=== PATIENT | female | born 2000 | race African-American/Black ===

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

== ENCOUNTER 2025-05-21 07:54 | Emergency (ER) | payer OTHER, SELFPAY ==
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
[2025-05-21 08:07] VITALS: BP 105/53; PULSE 68; RESP 14; TEMP 36.6; O2SAT 98; BMI 25.7
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
--- OUTSIDE RECORDS SUMMARY | 2025-05-21 08:39 | XMS_ITS | Data Portability ---
Author Organization Fabienne Cespedes Call Address [address] [place] [address] Care Team Providers Care Director Digital Analytics Name Role Phone VREONICA NGUYEN Point Of Sale Associate Unavailable Assessment No assessment recorded. Plan of Treatment Reminders Order Date Submit Date Provider Last Modified By Organization Details Last Modified Time Details Appointments None recorded. Lab lipid panel, serum 2022 023 RANDY [facility], [address] [place], [address], 3 10:06:35 CBC w/ auto diff 2022 023 RANDY [facility], [address] [place], [address], 3 10:06:33 CMP, serum or plasma 2022 023 RANDY [facility], [address] [place], [address], 3 10:06:34 Referral psychologis t referral - Reports h/o anxiety disorder. Reports recent family event that has worsened her symptoms. [facility]22 [facility] [address] [place] [address] [facility], [address] [place] [address], [address], 4 11:58:40 Procedures None recorded. Surgeries None recorded. Imaging None recorded. Medication Orders None recorded. Patient TargetsNo targets recorded. Patient InstructionsNo instructions recorded. Reason for Referral Psychologist Referral for Mi xed anxiety and depressive disorder Reports h/o anxiety disorder. Reports recent family event that has worsened her symptoms. Referring Physician: Steven Nava, Family Medicine, Encounter Date: 09/22/2023 Results Created Date Observation Date Name Description Value Unit Range Abnormal Flag Note LastModifiedBy Organization Detail LastModifiedTime 09/22/2009/23/2023 CBC WITH DIFFE RENTI AL/PL ATELE T WBC 6.5 x10e3 /uL 3.4-10 .8 Not Available [facility] ([facility]) [address] [place], [address], 09/23/2023 10:06:33 09/22/2009/23/2023 CBC WITH DIFFE RENTI AL/PL ATELE T RBC 5.54 x10e6 /uL 3.77-5 .28 above high normal Not Available [facility] ([facility]) [address] [place], [address], 09/23/2023 10:06:33 09/22/20 23 09/23/2023 CBC WITH DIFFE RENTI AL/PL ATELE T hemoglobin 12.7 g/dL 11.1-1 5.9 Not Available [facility] ([facility]) [address] [place], [address], 09/23/2023 10:06:33 09/22/20 23 09/23/2023 CBC WITH DIFFE RENTI AL/PL ATELE T hematocrit 41.1 % 34.0-4 6.6 Not Available [facility] ([facility]) [address] [place], [address], 09/23/2023 10:06:33 09/22/20 23 09/23/2023 CBC WITH DIFFE RENTI AL/PL ATELE T MCV 74 fL 79-97 below low normal Not Available [facility] ([facility]) [address] [place], [address], 09/23/2023 10:06:33 11/07/09/23/2023 CBC WITH DIFFE RENTI AL/PL ATELE T MCH 22.9 pg 26.6-3 3.0 below low normal Not Available [facility] ([facility]) [address] [facility] [place] [facility], [place], [address], 09/23/2023 10:06:33 09/22/20 23 09/23/2023 CBC WITH DIFFE RENTI AL/PL ATELE T MCHC 30.9 g/dL 31.5-3 5.7 below low normal Not Available [facility] ([facility]) [address] [facility] [place] [facility], [place], [address], 09/23/2023 10:06:33 09/22/20 23 09/23/2023 CBC WITH DIFFE RENTI AL/PL ATELE T RDW 13.7 % 11.7-1 5.4 Not Available [facility] ([facility]) [address] [facility] [place] [facility], [place], [address], 09/23/2023 10:06:33 09/22/20 23 09/23/2023 CBC WITH DIFFE RENTI AL/PL ATELE T platelets 240 x10e3 /uL 150-45 0 Not Available [facility] ([facility]) [address] [facility] [place] [facility], [place], [address], 09/23/2023 10:06:33 09/22/20 23 09/23/2023 CBC WITH DIFFE RENTI AL/PL ATELE T neutrophils 60 % not estab. Not Available [facility] ([facility]) [address] [facility] [place] [facility], [place], [address], 09/23/2023 10:06:33 09/22/20 23 09/23/2023 CBC WITH DIFFE RENTI AL/PL ATELE T lymphs 30 % not estab. Not Available [facility] ([facility]) [address] [facility] [place] [facility], [place], [address], 09/23/2023 10:06:33 09/22/20 23 09/23/2023 CBC WITH DIFFE RENTI AL/PL ATELE T monocytes 8 % not estab. Not Available [facility] ([facility]) [address] [facility] [place] [facility], [place], [address], 09/23/2023 10:06:33 09/22/20 23 09/23/2023 CBC WITH DIFFE RENTI AL/PL ATELE T eos 1 % not estab. Not Available [facility] ([facility]) [address] [facility] [place] [facility], [place], [address], 09/23/2023 10:06:33 09/22/20 23 09/23/2023 CBC WITH DIFFE RENTI AL/PL ATELE T basos 1 % not estab. Not Available [facility] ([facility]) [address] [facility] [place] [facility], [place], [address], 09/23/2023 10:06:33 09/22/20 23 09/23/2023 CBC WITH DIFFE RENTI AL/PL ATELE T immature cells SCRAPER LOADER OPERATOR Not Available [facility] ([facility]) [address] [place], [address], 09/23/2023 10:06:33 09/22/20 23 09/23/2023 CBC WITH DIFFE RENTI AL/PL ATELE T neutrophils (absolute) 3.9 x10e3 /uL 1.4-7. 0 Not Available [facility] ([facility]) [address] [facility] [place] [facility], [place], [address], 09/23/2023 10:06:33 09/22/20 23 09/23/2023 CBC WITH DIFFE RENTI AL/PL ATELE T lymphs (absolute) 2.0 x10e3 /uL 0.7-3. 1 Not Available [facility] ([facility]) [address] [place], [address], 09/23/2023 10:06:33 09/22/20 23 09/23/2023 CBC WITH DIFFE RENTI AL/PL ATELE T monocytes(ab solute) 0.5 x10e3 /uL 0.1-0. 9 Not Available [facility] ([facility]) [address] [facility] [place] [facility], [place], [address], 09/23/2023 10:06:33 09/22/20 23 09/23/2023 CBC WITH DIFFE RENTI AL/PL ATELE T eos (absolute) 0.1 x10e3 /uL 0.0-0. 4 Not Available [facility] ([facility]) [address] [facility] [place] [facility], [place], [address], 09/23/2023 10:06:33 09/22/20 23 09/23/2023 CBC WITH DIFFE RENTI AL/PL ATELE T baso (absolute) 0.0 x10e3 /uL 0.0-0. 2 Not Available [facility] ([facility]) [address] [facility] [place] [facility], [place], [address], 09/23/2023 10:06:33 09/22/20 23 09/23/2023 CBC WITH DIFFE RENTI AL/PL ATELE T immature granulocytes 0 % not estab. Not Available [facility] ([facility]) [address] [facility] [place] [facility], [place], [address], 09/23/2023 10:06:33 09/22/20 23 09/23/2023 CBC WITH DIFFE RENTI AL/PL ATELE T immature grans (abs) 0.0 x10e3 /uL 0.0-0. 1 Not Available [facility] ([facility]) [address] [facility] [place] [facility], [place], [address], 09/23/2023 10:06:33 09/22/20 23 09/23/2023 CBC WITH DIFFE RENTI AL/PL ATELE T NRBC SCRAPER LOADER OPERATOR Not Available [facility] ([facility]) [address] [facility] [place] [facility], [place], [address], 09/23/2023 10:06:33 09/22/20 23 09/23/2023 CBC WITH DIFFE RENTI AL/PL ATELE T hematology comments: SCRAPER LOADER OPERATOR Not Available [facility] ([facility]) [address] [facility] [place] [facility], [place], [address], 09/23/2023 10:06:33 09/22/20 23 09/23/2023 COMP. METAB OLIC PANEL (14) glucose 87 mg/dL 70-99 Not Available [facility] ([facility]) [address] [facility] [place] [facility] [place], [address], 09/23/2023 10:06:34 09/22/20 23 09/23/2023 COMP. METAB OLIC PANEL (14) BUN 15 mg/dL 6-20 Not Available [facility] ([facility]) [address] [facility] [place] [facility] [place], [address], 09/23/2023 10:06:34 09/22/20 23 09/23/2023 COMP. METAB OLIC PANEL (14) creatinine 0.81 mg/dL 0.57-1 .00 Not Available [facility] ([facility]) [address] [facility] [place] [facility], [place], [address], 09/23/2023 10:06:34 09/22/20 23 09/23/2023 COMP. METAB OLIC PANEL (14) eGFR 106 mL/mi n/1.7 3 >59 Not Available [facility] ([facility]) [address] [place], [address], 09/23/2023 10:06:34 09/22/20 23 09/23/2023 COMP. METAB OLIC PANEL (14) BUN/creatini ne ratio 19 9-23 Not Available [facility] ([facility]) [address] [facility] [place] [facility] [place], [address], 09/23/2023 10:06:34 09/22/20 23 09/23/2023 COMP. METAB OLIC PANEL (14) sodium 141 mmol/ L 134-14 4 Not Available [facility] ([facility]) [address] [place], [address], 09/23/2023 10:06:34 09/22/20 23 09/23/2023 COMP. METAB OLIC PANEL (14) potassium 4.1 mmol/ L 3.5-5. 2 Not Available [facility] ([facility]) [address] [facility] [place] [facility], [place], [address], 09/23/2023 10:06:34 09/22/20 23 09/23/2023 COMP. METAB OLIC PANEL (14) chloride 106 mmol/ L 96-106 Not Available [facility] ([facility]) [address] [facility] [place] [facility], [place], [address], 09/23/2023 10:06:34 09/22/20 23 09/23/2023 COMP. METAB OLIC PANEL (14) carbon dioxide, total 21 mmol/ L 20-29 Not Available [facility] ([facility]) [address] [facility] [place] [facility], [place], [address], 09/23/2023 10:06:34 09/22/20 23 09/23/2023 COMP. METAB OLIC PANEL (14) calcium 9.5 mg/dL 8.7-10 .2 Not Available [facility] ([facility]) [address] [facility] [place] [facility] [place], [address], 09/23/2023 10:06:34 09/22/20 23 09/23/2023 COMP. METAB OLIC PANEL (14) protein, total 7.4 g/dL 6.0-8. 5 Not Available [facility] ([facility]) [address] [facility] [place] [facility], [place], [address], 09/23/2023 10:06:34 09/22/20 23 09/23/2023 COMP. METAB OLIC PANEL (14) albumin 4.6 g/dL 4.0-5. 0 Not Available [facility] ([facility]) [address] [facility] [place] [facility], [place], [address], 09/23/2023 10:06:34 09/22/20 23 09/23/2023 COMP. METAB OLIC PANEL (14) globulin, total 2.8 g/dL 1.5-4. 5 Not Available [facility] ([facility]) [address] [facility] [place] [facility], [place], [address], 09/23/2023 10:06:34 09/22/20 23 09/23/2023 COMP. METAB OLIC PANEL (14) A/G ratio 1.6 1.2-2. 2 Not Available [facility] ([facility]) [address] [facility] [place] [facility], [place], [address], 09/23/2023 10:06:34 09/22/20 23 09/23/2023 COMP. METAB OLIC PANEL (14) bilirubin, total 0.5 mg/dL 0.0-1. 2 Not Available [facility] ([facility]) [address] [facility] [place] [facility], [place], [address], 09/23/2023 10:06:34 09/22/20 23 09/23/2023 COMP. METAB OLIC PANEL (14) alkaline phosphatase 85 IU/L 44-121 Not Available [facility]) [address] [facility] [place] [facility], [place], [address], 09/23/2023 10:06:34 09/22/20 23 09/23/2023 COMP. METAB OLIC PANEL (14) AST (SGOT) 16 IU/L 0-40 Not Available [facility] ([facility]) [address] [place], [address], 09/23/2023 10:06:34 09/22/20 23 09/23/2023 COMP. METAB OLIC PANEL (14) ALT (SGPT) 10 IU/L 0-32 Not Available [facility] ([facility]) [address] [facility] [place] [facility], [place], [address], 09/23/2023 10:06:34 09/22/20 23 09/23/2023 LIPID PANEL cholesterol, total 143 mg/dL 100-19 9 Not Available [facility] ([facility]) [address] [facility] [place] [facility], [place], [address], 09/23/2023 10:06:35 09/22/20 23 09/23/2023 LIPID PANEL triglyceride s 39 mg/dL 0-149 Not Available [facility] ([facility]) [address] [facility] [place] [facility], [place], [address], 09/23/2023 10:06:35 09/22/20 23 09/23/2023 LIPID PANEL HDL cholesterol 49 mg/dL >39 Not Available [facility]) [address] [facility] [place] [facility], [place], [address], 09/23/2023 10:06:35 09/22/20 23 09/23/2023 LIPID PANEL VLDL cholesterol katt 9 mg/dL 5-40 Not Available [facility] ([facility]) [address] [facility] [place] [facility], [place], [address], 09/23/2023 10:06:35 09/22/20 23 09/23/2023 LIPID PANEL LDL chol calc ([facility]) 85 mg/dL 0-99 Not Available [facility]) [address] [facility] [place] [facility], [place], [address], 09/23/2023 10:06:35 09/22/20 23 09/23/2023 LIPID PANEL comment: SCRAPER LOADER OPERATOR Not Available [facility] ([facility]) [address] [facility] [place] [facility], [place], [address], 09/23/2023 10:06:35 Result Notes None recorded. Problems Name Problem SNOMED Code Status Onset Date Resolution Date Notes Provider Name and Address Organization Details Recorded Time Mixed anxiety and depressive disorder 091113303 Active 2022 JW Collier [address] [place] [address], HIMANSHU MANDO, [place], [address], [facility] - [facility] 14:46:21 Gynecologic examination Active 2022 JOSE MANUEL CollierNP [address] [facility],[address], [place], [address], [facility] 3 14:51:41 Screening for cardiovascular system disease Active 2022 StevenJW Giraldo Eyal [facility],[address], [place], [address], [facility] 3 14:51:42 Problem Notes None recorded. Procedures Surgical History Date Name Laterality Status Provider Name and Address Organization Details Recorded Time Date of Last Pap Smear completed StevenJW Giraldo Eyal [facility],[place], [address], [facility] 09/22/2023 14:30:10 repair of umbilical hernia completed StevenJW Giraldo Eyal [facility], [place], [address], [facility] 09/22/2023 14:29:52 Imaging Results None recorded. Procedure Notes None recorded. Medical Equipment None Reported. Allergies No known drug allergies Medications Name Sig Start Date Stop Date Status Note LastModified by Organization Details LastModified Time acetaminophe n 325 mg tablet active Not Available Not Available Not Available fluconazole 150 mg tablet TAKE 1 TABLET BY MOUTH EVERY 3 DAYS FOR 2 DOSES active Not Available Not Available No t Available metronidazol e 0.75 % (37.5 mg/5 gram) vaginal gel Select to view Extended SIG active Not Available Not Available No t Available metronidazol e 500 mg tablet TAKE 1 TABLET BY MOUTH TWICE A DAY FOR 7 DAYS active Not Available Not Available No t Available valacyclovir 500 mg tablet TAKE 1 TABLET BY MOUTH TWICE DAILY active Not Available Not Available No t Available acetaminophe n 500 mg tablet TAKE 1 TABLET BY MOUTH EVERY 4 TO 6 HOURS NEEDED active Not Available Not Available No t Available doxycycline monohydrate 100 mg capsule TAKE 1 CAPSULE BY MOUTH TWICE A DAY FOR 10 DAYS active Not Available Not Available No t Available cephalexin 500 mg capsule active Not Available Not Available Not Available clindamycin 2 % vaginal cream INSERT 1 APPLICATORF UL VAGINALLY AT BEDTIME FOR 7 DAYS active Not Available Not Available N ot Available ibuprofen 600 mg tablet TAKE 1 TABLET BY MOUTH EVERY 6 TO 8 HOURS NEEDED active Not Available Not Available No t Available ondansetron 4 mg disintegrati ng tablet DISSOLVE ONE TABLET BY MOUTH EVERY 6 HOURS NEEDED FORNAUSEA AND VOMITING active Not Available Not Available No t Available metronidazol e 0.75 % topical gel APPLY TOPICALLY AT BEDTIME FOR 5 DAYS active Not Available Not Available N ot Available amoxicillin 875 mg-potassium clavulanate 125 mg tablet TAKE 1 TABLET BY MOUTH EVERY 12 HOURS DAILY active Not Available Not Available No t Available oxycodone 5 mg tablet TAKE 1 TABLET EVERY 6 HOURS NEEDED FOR BREAKTHROUG H PAIN. active Not Available Not Available No t Available nitrofuranto in monohydrate/ macrocrystal s 100 mg capsule TAKE 1 CAPSULE BY MOUTH EVERY 12 HOURS FOR 5 DAYS active Not Available Not Available N ot Available chlorhexidin e gluconate 0.12 % mouthwash RINSE MOUTH WITH 15ML (1 CAPFUL) FOR 30 SECONDS IN MORNING AND EVENING AFTER BRUSHING, THEN SPIT active Not Available Not Available No t Available levonorgestr el 1.5 mg tablet TAKE 1 TABLET BY MOUTH WITHIN 72HRS OF UNPROTECTED SEX. active Not Available Not Available No t Available 28 mg iron-800 mcg tablet TAKE 1 TABLET BY MOUTH DAILY active Not Available Not Available Not Available Vitals Date Recorded Oxygen saturation Oxygen saturation in Arterial blood by Pulse oximetry Heart rate Respiratory rate Body temperature Body height Body mass index (BMI) Body weight Systolic And Diastolic Provider Name and Address Organization Details Last Updated DateTime 3 98 % 98 % 54 /min 20 /min 98.9 [degF] 160.02 cm 25.7 kg/m2 73192.8 9 g 135/61 mm[Hg] JW Collier [address] [place], [address] [place] [address] 3 14:37:49 Social History Question Answer Notes LastModified by Organizat ion Details LastModified Time Tobacco Smoking Status Never Smoker JW Collier [address] [place] [address],[place], [address], [facility] 09/22/2023 14:26:59 Do You Have An Advance Directive? No Information n ot available 09/22/2023 If You Are , What Was Your Level Of Alcohol Consumption Prior To ? None Information not available 09/22/2023 Do You Wear A Helmet When Biking? Yes Information not available 09/22/2023 Are You Blind Or Do You Have Difficulty Seeing? No Information n ot available 09/22/2023 Is Blood Transfusion Acceptable In An Emergency? Yes Information not available 09/22/2023 What Is Your Level Of Caffeine Consumption? Occasional Information not available 09/22/2023 What Type Of Sorting Machine Operator Do You Use? None Information not available 09/22/2023 In The 14 Days Before Symptom Onset, Have You Had Close Contact With A Laboratory-confirm ed COVID-19 While That Case Was Ill? No Information n ot available 09/22/2023 In The 14 Days Before Symptom Onset, Have You Had Close Contact With A Person Who Is Under Investigation For COVID-19 While That Person Was Ill? No Information not available 09/22/2023 Have You Been To An Area Known To Be High Risk For COVID-19? No Information not available 09/22/2023 Are You Deaf Or Do You Have Serious Difficulty Hearing? No Information not available 09/22/2023 What Type Of Diet Are You Following? REGULAR Information n ot available 09/22/2023 Have You Processed Blood Or Body Fluids From An Ebola Virus Disease Patient Without Appropriate PPE? No Information not available 09/22/2023 Do You Reside In Or Have You Traveled To An Area Where Ebola Virus Transmission Is Active? No Information not available 09/22/2023 What Is The Highest Grade Or Level Of School You Have Completed Or The Highest Degree You Have Received? [id number] Information not available 09/22/2023 How Many Days Of Moderate To Strenuous Exercise, Like A Brisk Walk, Did You Do In The Last 7 Days? 5 Information not available 09/22/2023 On Those Days That You Engage In Moderate To Strenuous Exercise, How Many Minutes, On Average, Do You Exercise? 25 Information not available 09/22/2023 Have There Been Any Changes To Your Family Or Social Situation? No Information no t available 09/22/2023 What Is The Fluoride Status Of Your Home? Unknown Information not available 09/22/2023 Are There Any Guns Present In Your Home? No Information not available 09/22/2023 Have You Recently Or Are You Planning To Travel To An Area With Zika Virus? No Information not available 09/22/2023 Do You Use Insect Repellent Routinely? Yes Information not available 09/22/2023 How Many Children Do You Have? 1 Information not available 09/22/2023 Do You Have Any Pets? No Information not available 09/22/2023 Do You Use Protection During Sex? Usually Information not available 09/22/2023 What Is Your Relationship Status? Single Information not available 09/22/2023 Do You Use Your Seat Belt Or Car Seat Routinely? Yes Information not available 09/22/2023 Are You Sexually Active? Yes Information not available 09/22/2023 Do You Have Smoke And Carbon Monoxide Detectors In Your Home? Yes Information not available 09/22/2023 Are You Passively Exposed To Smoke? No Information no t available 09/22/2023 What Types Of Sporting Activities Do You Participate In? None Information not available 09/22/2023 Do You Use Sunscreen Routinely? Yes Information not available 09/22/2023 Do You Have Difficulty Walking Or Climbing Stairs? No Information not available 09/22/2023 Sex: Female Functional Status Question Answer Note LastModified by Organizat ion Details LastModified Time Do you use any illicit or recreational drugs? No Information not available 09/22/2023 Do you or have you ever used any other forms of tobacco or nicotine? No Information not available 09/22/2023 What is your level of alcohol consumption? Occasional Information not available 09/22/2023 Are you currently employed? No Information not available 09/22/2023 Do you have transportation difficulties? No Information not available 09/22/2023 Are you able to walk? YESWOREST Information not available 09/22/2023 Do you have difficulty doing errands alone? No Information not available 09/22/2023 Are you able to care for yourself? Yes Information n ot available 09/22/2023 Do you have difficulty dressing or bathing? No Information not available 09/22/2023 What is your exercise level? Occasional Information not available 09/22/2023 Mental Status Question Answer Note LastModified by Organizat ion Details LastModified Time Do you feel stressed (tense, restless, nervous, or anxious, or unable to sleep at night)? [id number] Information not available 09/22/2023 Do you have difficulty concentrating, remembering or making decisions? No Information no t available 09/22/2023 Family History Relationship Description Onset Age of this Age Resolved Age Notes LastModified by Organization Details LastModified Time Sister Diabetes mellitus Not available 2022 14:25:23 Mother Malignant neoplastic disease Not available 2022 14:25:33 Father Coronary arterioscler osis Not available 2022 14:25:41 Medical History Condition Response Coronary Artery Disease N Other N Gout N Kidney Stones N Blood Diseases N Hyperthyroidism N Blood Transfusion N COPD N Depression N Anxiety Disorder N Muscle, Joint, or Bone Problems N Obesity N Vision or Eye Problems N Arthritis N Infertility N Polyps N Mental Disorder N Cancer N Stroke N Varicosities N Fibromyalgia N Headaches N Kidney Disease N Heart Problems N Ear or Hearing Problems N Hospitalizations N Skin Problems N Eating Disorder N MRSA exposure N Constipation N Tuberculosis N AIDS/HIV N Asthma N Hepatitis N Pulmonary Embolism N Chronic Ear Infections N Chicken Pox N Autism Spectrum Disorder (ASD) N Thrombophilias N Breast Cancer N Hypothyroidism N Lung Disease N Defects or Inherited Disease N Developmental or Behavioral Disorders N Breast Problem N Difficulty Swallowing N Anesthesia Complications N Meniere's disease N Endometriosis N Bladder or Kidney Problems N High Cholesterol N Liver Disease N Allergies/Hayfever N Thyroid Problems N GI Problems N ADD/ADHD N Anemia N Mental Illness N Ovarian Cancer N Diabetes N Bedwetting N Seizures/Epilepsy N Congestive Heart Failure (CHF) N Eczema N Diverticulitis N Abuse/Domestic Violence N Reflux/GERD N Heart Disease N Pre-Eclampsia N Hypertension N Osteoporosis N Gynecological History Statement/Question Response STIs/STDs N HPV Vaccine Y Date of Last Pap Smear 06/22/2023 Sexual Problems? N Sexually Active? Y Obstetrics History GPAL:G 1 P 0 0 0 0 Past Encounters Encounter ID Performer Location Encounter Start Date Encounter Closed Date Diagnosis/Indication Diagnosis SNOMED-CT Code Diagnosis ICD10 Code Diagnosis Note [id number] [address]W [address], [address] [place] [address] 09/22/2023 14:14:44 09/22/2023 15:01:35 Active or passive immunization 007966790 Z23 Reports up to date with some vaccines Adult heal th examination 219076493 Z00.00 Seems stable. Patient presented to office today for annual preventati ve exam. Education was provided on healthy nutrition, including a diet rich in fruits and vegetables , minimizing simple carbohydra sakina, salt, and saturated fats. Encouraged regular cardiovasc ular exercise such as walking at least 30 minutes daily, 5 times per week. Emphasized preventive health measures and educated pt on fall prevention and community- based lifestyle interventi ons to help reduce health risks and promote healthy living. CBC with diff and CMP drawn. Results pending Gynecologi c examination [id number] Z01.419 Seems stable. Patient reports annual pap smear within normal limits. F/u with PSYCHOLOGIST CHIEF as prescribed . Screening for cardiovascular system disease [id number] Z13.6 Seems stable. Patient with no known hyperlipid emia. Last lipid panel unknown. Patient continues on lifestyle modificati ons discussed including weight loss, aerobic exercise at least 30 min/day at least 5 days per week, and a diet rich in fruit and vegetables . Lipid panel drawn. Results pending. Mixed anxi ety and depressive disorder [id number] F41.8 Seems stable. Reports recent family event that has worsened her symptoms. Patient identified triggers for anxiety and impact of anxious thinking on functionin g. Discussed strategies to regulate symptoms and need for compliance with treatment. Denies panic attack. F/u with psych as discussed. Health Concerns Section Related Observation LastModified by Organization Detai ls LastModified Time None Recorded Concern Status LastModified by Organization Details LastModified Time None Recorded Advance Directives Directive N: Payers Insurance Date Sequence Insurance Name Policy Number Policy Delgado Covered Member ID Delgado Member ID Guarantor Name 10/19/2024 [employer] Mariluz Kirby 09/17/2023 SLIDING FEE SCHEDULE - DISCOUNT Mariluz Kirby 10/19/2024 1 [place] [facility] Mariluz Kirby [id number] Mariluz Kirby 09/22/2023 *SELF PAY* laly Kirby Notes Date Note Type Note Provider Name and Address Organization Details Recorded Time 09/22/2023 text/html Patient seen for annual preventative exam JW Collier [address] [place] [address],[address], [place], [address], [facility] 09/22/2023 14:53:14 OBGyn Episode No OBEpisode recorded.
[2025-05-21 08:51] LABS: MANUAL DIFF FLAG NO
[2025-05-21 08:53] LABS: Hematocrit 40.5 % (37.0-47.0); Hemoglobin 13.2 g/dl (12.0-16.0); Imm Gran Abs Auto 0.04 X10*3/uL (0.00-0.03); Imm Gran Pct Auto 0.4 % (0.0-0.4); Lymphocytes Absolute Auto 1.6 X10*3/uL (1.2-4.9); Mean Corpuscular HGB Conc 32.6 g/dl (31.0-35.0); Mean Corpuscular Hemoglobin 22.9 pg (27.0-33.0); Mean Corpuscular Volume 70.2 fL (80.0-98.0); NRBC Abs Auto 0.000 X10*3/uL (0.0-0.012); NRBC Pct Auto 0.0 /100WBC (0.0-0.2); Platelet Count 234 X10*3/uL (160-400); Red Blood Count 5.77 X10*6/uL (4.20-5.50); White Blood Count 9.2 X10*3/uL (4.8-10.8)
[2025-05-21 09:19] LABS: Alanine Aminotransferase 13 U/L (0-31); Albumin Level 4.8 g/dL (3.5-5.0); Alkaline Phosphatase 80 U/L (39-117); Anion Gap 15 (12-20); Aspartate Amino Transferase 24 U/L (5-31); Blood Urea Nitrogen 9 mg/dL (9-16); Calcium 9.3 mg/dL (8.4-10.2); Carbon Dioxide 21 mmol/L (22-29); Chloride 112 mmol/L (96-108); Creatinine Clr Calc Pharmacy 130.6; Estimated Glomerular Filt Rate > 60; Potassium 4.0 mmol/L (3.3-5.1); Sodium 144 mmol/L (135-145); Total Protein 8.0 g/dL (6.5-8.0)
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
[2025-05-21] MEDS: iohexoL 350 MG/ML 100 ML INFUS..BTL 85 ML IV (09:48)
[2025-05-21] MEDS: Lidocaine 4 % Patch ADH..PATCH 1 PATCH TRANSDERMA (09:50)
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
[2025-05-21 09:59] VITALS: BP 116/62; PULSE 99; O2SAT 97
[2025-05-21 11:27] VITALS: BP 128/67; PULSE 90; RESP 14; O2SAT 99
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
[2025-05-21 11:59] VITALS: BP 128/67; PULSE 90; RESP 14; TEMP 36.6; O2SAT 99
== END 2025-05-21 11:59 | disposition home or self-care (01) ==
PROVIDERS: Physician Assistant Medical; Emergency Provider Emergency Medicine; PCP Pediatrics
DX: S06.0X0A Concussion without loss of consciousness, initial encounter (principal); R51.9 Headache, unspecified; R07.89 Other chest pain; M54.2 Cervicalgia; R10.2 Pelvic and perineal pain; V43.62XA Car passenger injured in collision with other type car in traffic accident, initial encounter; Y93.9 Activity, unspecified; Y92.410 Unspecified street and highway as the place of occurrence of the external cause; Y99.8 Other external cause status
CPT/HCPCS: 36415; 70450; 71260; 72125; 74177; 80053; 84702; 85025; 96365; 96375; 99285; J0131; J2405; Q9967

== ENCOUNTER → 2025-05-21 08:35 | Outpatient (BNV) | payer OTHER, SELFPAY | PROVIDERS: Emergency Provider Emergency Medicine; PCP Pediatrics; Visit Provider Radiology Vascular & Interventional Radiology | DX: R10.2 Pelvic and perineal pain (principal); R07.89 Other chest pain; M54.2 Cervicalgia; R51.9 Headache, unspecified | CPT/HCPCS: 70450; 71260; 72125; 74177 ==